=== PATIENT | male | born 1955 | race African-American/Black ===

== ENCOUNTER 2022-06-12 04:32 | Emergency (ER) | payer OTHER, MEDICARE ==
[~2022-06-12] VITALS: Ht 190.5 cm; Wt 122.5 kg
[2022-06-12 04:45] VITALS: TEMP 98.5
[2022-06-12 06:00] VITALS: BP 115/78
== END 2022-06-12 06:00 | disposition home or self-care (01) ==
LOC: ED 04:32
PROC: 0HQ1XZZ Repair Face Skin, External Approach (ICD-10-PCS; principal; 2022-06-12)
DX: S01.112A Laceration without foreign body of left eyelid and periocular area, initial encounter (principal); S02.2XXA Fracture of nasal bones, initial encounter for closed fracture; W01.198A Fall on same level from slipping, tripping and stumbling with subsequent striking against other object, initial encounter; Y92.89 Other specified places as the place of occurrence of the external cause
CPT/HCPCS: 99283; J2001